=== PATIENT | female | born 1960 | race Hispanic/Latino ===

== ENCOUNTER 2017-03-16 12:37 | Outpatient (CLI) | payer OTHER ==
--- NOTE | 2017-03-17 15:11 | Magnetic Resonance Report ---
MRI of the breasts with and without contrast. History: Persistent bilateral breast pain status post breast reduction surgery. Patient's prior mammograms from [facility] were reviewed prior to evaluating this study. Procedure: The study was performed on a [place] breast coil and a 1.5 Barbara GE magnet treated precontrast axial T1 and T2-weighted images and postcontrast high-resolution multiphase vibrant protocol was performed. Post processing was performed on images work station. Findings: Left breast. Scattered fibroglandular tissue is present with predominant adipose tissue. There is no evidence of mass lesions or abnormal enhancement. The areas of asymmetric parenchyma in the left upper breast which were evaluated with spot compression images an ultrasound demonstrates no suspicious MRI findings. Right breast: There is predominance of fibrofatty tissue with no mass lesions or suspicious areas of enhancement. Impression: No suspicious MRI findings. BI-RADS code: 2. Recommendation: Continued annual mammographic screening.
== END 2017-03-16 12:38 | disposition home or self-care (01) ==
LOC: SPVIMAG 12:37
PROVIDERS: ATTEND Surgery
DX: N64.4 Mastodynia (principal); R92.2 Inconclusive mammogram; Z98.890 Other specified postprocedural states
CPT/HCPCS: 0159T; A9577; C8908; 77059